=== PATIENT | male | born 1965 | race Caucasian/White ===

== ENCOUNTER → 2018-05-19 | Outpatient (REF) | payer BC ==
[2018-05-19 14:42] LABS: APPEARANCE, URINE HAZY (CLEAR); BACTERIA, URINE AUTO NEGATIVE (NEGATIVE); BILIRUBIN, URINE AUTO NEGATIVE (NEGATIVE); BLOOD, URINE BLOOD 3+ (NEGATIVE); COLOR, URINE YELLOW (YELLOW); GLUCOSE, URINE (UA) AUTO NEGATIVE (NEGATIVE); KETONE, URINE AUTO NEGATIVE (NEGATIVE); LEUKOCYTE ESTERASE, URINE AUTO NEGATIVE (NEGATIVE); NITRITE, URINE AUTO NEGATIVE (NEGATIVE); PROTEIN, URINE AUTO 1+ mg/dL (NEGATIVE); RBC, URINE AUTO TNTC /HPF (0-3); SPECIFIC GRAVITY URINE AUTO 1.013 (1.002-1.035); SQUAMOUS EPITHELIAL CELL UR AU 0 /HPF (0-6); UROBILINOGEN, URINE AUTO 0.2 mg/dL (0.0-2.0); WBC, URINE AUTO 0 /HPF (0-3)
[2018-05-27 00:08] LABS: COMMENT Comment: (.); COMMENT Note: (.)
== END ==
LOC: M SMT 12:54
DX: R31.0 Gross hematuria (principal)
CPT/HCPCS: 81001

== ENCOUNTER → 2020-02-01 | Outpatient (REF) | payer BC | LOC: M LAB REF 16:02 | PROVIDERS: ATTEND Nurse Practitioner Adult Health | DX: R07.9 Chest pain, unspecified (principal) ==

== ENCOUNTER → 2020-09-12 | Outpatient (CLI) | payer BC ==
--- NOTE | 2020-09-12 13:29 | REPVR ---
PROCEDURE INFORMATION: Exam: MR Head Without Contrast; Internal Auditory Canals Exam date and time: 09/12/2020 12:07 PM Age: 55 years old Clinical indication: Other: Hearing loss; Additional info: Sen hearing loss benitez TECHNIQUE: Imaging protocol: MR of the head without contrast. Exam focused on the internal auditory canals. 3D rendering (Not supervised by radiologist): MIP and/or 3D reconstructed images were created by the technologist. COMPARISON: No relevant prior studies available. FINDINGS: Brain: There is no extra-axial collection or intra-axial mass. There is minimal T2/FLAIR white matter hyperintensity, nonspecific but typically small-vessel ischemia in this age group. There is no diffusion restriction. Ventricles: No ventriculomegaly. Mastoid air cells: Unremarkable. No effusions. Internal auditory canals: The IAC's are symmetric, without abnormal mass. The cerebellopontine angles are clear. Bones/joints: Unremarkable. IMPRESSION: Normal internal auditory canals. Electronically signed by: Carmelita Schafer On 09/12/2020 13:30:02 PM
== END ==
LOC: M RAD 10:34
PROVIDERS: ATTEND Otolaryngology
DX: H90.3 Sensorineural hearing loss, bilateral (principal)

== ENCOUNTER 2024-03-01 09:38 | Day surgery (SDC) | payer BC ==
[~2024-03-01] VITALS: Ht 188 cm; Wt 79.6 kg
[2024-03-01] MEDS: BACITRACIN OINTMENT 30GM TUBE As Ordered ONE (09:09)
[~2024-03-01 09:38] MED LIST: ASPI81TA26 PO; DULC5TAB PO; viviscal PO
[2024-03-01] MEDS ORDERED: propofoL 200 MG/20 ML VIAL As Ordered ONE (09:39)
[2024-03-01] MEDS: NS 1,000 ML IV ONE (10:04)
[2024-03-01 12:11] VITALS: BP 113/71; O2SAT 97
== END 2024-03-01 12:13 | disposition home or self-care (01) ==
LOC: M OPP 09:38
PROVIDERS: ATTEND Surgery
DX: Z12.11 Encounter for screening for malignant neoplasm of colon (principal); Z79.82 Long term (current) use of aspirin; Z79.899 Other long term (current) drug therapy